=== PATIENT | female | born 1940 | race Caucasian/White ===

== ENCOUNTER 2021-08-10 10:17 | Day surgery (SDC) | payer MEDICARE, SELFPAY ==
[2021-08-10] VITALS (22 sets, daily range): BP systolic 93–157; BP diastolic 50–87; PULSE 60–103; RESP 16–20; TEMP 36.2–36.7; O2SAT 92–99; BMI 23.8
--- NOTE | 2021-08-10 10:27 | HMH.EDGENADL ---
ED Disposition Clinical Impression: Esophageal stricture, Hiatal hernia Dysphagia Qualifiers: Dysphagia type: esophageal phase Qualified Code(s): R13.19 - Other dysphagia Disposition: Still a Patient Condition on Discharge: Fair Referrals: Diego Gonzalez [Primary Care Provider] - - Critical Care Critical Care Time: No Attestation: On , the high probability of a clinically significant, sudden or life threatening deterioration of the following system(s) required my full and direct attention, intervention and personal management. The time I documented below is in addition to time spent performing reported procedures but includes the following listed in this critical care notation. Medical Decision Making - [place] Inquiry Pt receiving controlled substance: No Vital Signs: 08/10/21 10:17 08/10/21 10:18 08/10/21 10:30 Temperature 98.1 F Temperature Source Oral Pulse Rate 64 99 H Pulse Rate [Right Radial] 103 H Respiratory Rate 18 Blood Pressure 146/73 H 156/87 H Blood Pressure [Right Arm] 146/73 H Blood Pressure Mean Blood Pressure Mean [Right Arm] 97 Blood Pressure Source Automatic Cuff Blood Pressure Source [Right Arm] Automatic Cuff Blood Pressure Position Sitting Sitting Blood Pressure Position [Right Arm] Sitting 02 Sat by Pulse Oximetry 96 94 L 99 Oxygen Delivery Method Room Air Room Air Room Air 08/10/21 11:00 08/10/21 11:30 08/10/21 12:00 Temperature Temperature Source Pulse Rate 102 H 88 76 Pulse Rate [Right Radial] Respiratory Rate 18 Blood Pressure 138/81 152/73 H 150/70 H Blood Pressure [Right Arm] Blood Pressure Mean 98 Blood Pressure Mean [Right Arm] Blood Pressure Source Automatic Cuff Blood Pressure Source [Right Arm] Blood Pressure Position Sitting Sitting Blood Pressure Position [Right Arm] 02 Sat by Pulse Oximetry 98 96 97 Oxygen Delivery Method Room Air Room Air - Lab Data Lab Results 08/10/21 10:40: WBC 7.5, RBC 5.05, Hgb 16.7 H, Hct 49.3 H, MCV 97.6, MCH 33.0 H, MCHC 33.8, RDW 13.5, Plt Count 134 L, MPV 9.7, Neut % (Auto) 82.4 H, Lymph % (Auto) 11.5, [place] % (Auto) 4.8, Eos % (Auto) 0.8, Baso % (Auto) 0.5, Neut # (Auto) 6.2, Lymph # (Auto) 0.9, [place] # (Auto) 0.4, Eos # (Auto) 0.1, Baso # (Auto) 0.0 08/10/21 10:40: Sodium 144, Potassium 4.3, Chloride 101, Carbon Dioxide 25, Anion Gap 22.3 H, BUN 26 H, Creatinine 1.30 H, Estimated Creat Clear 32, Estimated GFR 39 L, Est GFR ( Amer) 48 L, Glucose 88, Calcium 10.7 H, Total Bilirubin 2.0 H, AST 64 H, ALT 24, Alkaline Phosphatase 84, Total Protein 8.2, Albumin 5.0, Globulin 3.2, Albumin/Globulin Ratio 1.6 08/10/21 10:40: Lipase 103 08/10/21 10:40: Troponin I 0.03 08/10/21 11:30: SARS-CoV-2 (PCR) Not detected, Influenza A Untype (PCR) Not detected, Influenza Type B (PCR) Not detected Result diagrams: 08/10/21 10:40 08/10/21 10:40 Orders (Tests/Meds): ED MEDICATIONS Discontinued Medications Generic Name Dose Route Start Last Admin Trade Name Freq PRN Reason Stop Dose Admin Barium Sulfate 355 ml 08/10/21 14:27 08/10/21 14:28 Barium Sulfate(Liquid E-Z-Paque);355ml Bottle PO 08/10/21 14:28 355 ml ONCE ONE Administration Sodium Chloride 1,000 ml 08/10/21 11:10 08/10/21 11:17 Sodium Chloride 0.9% 1000ml Bag IV 08/10/21 11:11 1,000 ml BOLUS ONE Administration - Radiology Data #1 Image(s): Chest, Other (Barium swallow) Image Reviewed: Yes I reviewed the patient's radiology image, Yes I have reviewed radiologist's interpretation Preliminary Findings: Abnormal (Large hiatal hernia) PROCEDURE: XR CHEST PORTABLE CLINICAL HISTORY: vomiting COMPARISON: No exams were available for comparison FINDINGS: There has been a prior median sternotomy. Bipolar pacemaker is present from left subclavian approach. There is [id number] cardiomegaly. A prominent rounded area of increased density is present in the retrocardiac agueda
[2021-08-10 10:52] LABS: Basophils % 0.5 % (0.1-2.0); Eosinophils # 0.1 K/mm3 (0.0-0.4); Eosinophils % 0.8 % (0.1-12.0); Hematocrit 49.3 % (37.0-47.0); Hemoglobin 16.7 g/dL (12.2-16.2); Lymphocytes # 0.9 K/mm3 (0.7-4.5); Lymphocytes % 11.5 % (10-50); Mean Corpuscular HGB Conc 33.8 g/dL (31.8-35.4); Mean Corpuscular Volume 97.6 fl (81-99); Mean Platelet Volume 9.7 fl (7.4-10.4); Monocytes # 0.4 K/mm3 (0.1-1.0); Monocytes % 4.8 % (1.7-9.3); Neutrophils # 6.2 K/mm3 (1.8-7.8); Neutrophils % 82.4 % (37.0-80.0); Platelet Count 134 K/mm3 (142-424); Red Blood Count 5.05 M/mm3 (4.20-5.40); Red Cell Distribution Width 13.5 % (11.5-17.5); White Blood Count 7.5 K/mm3 (4.8-10.8)
[2021-08-10 11:00] LABS: Chloride 101 mmol/L (98-107); Potassium 4.3 mmoL/L (3.5-5.1); Sodium 144 mmol/L (136-145)
--- NOTE | 2021-08-10 11:00 | XR_ITS ---
PROCEDURE: XR CHEST PORTABLE CLINICAL HISTORY: vomiting COMPARISON: No exams were available for comparison FINDINGS: There has been a prior median sternotomy. Bipolar pacemaker is present from left subclavian approach. There is [id number] cardiomegaly. A prominent rounded area of increased density is present in the retrocardiac region measuring 13 by 12 cm. This may represent a large hiatal hernia. Differential diagnosis includes aortic aneurysm or mediastinal mass. Suspect elevated left hemidiaphragm.. Chest CT may provide further evaluation. Degenerative changes of the shoulders. IMPRESSION: Cardiomegaly with large retrocardiac density which may be due to hiatal hernia. Differential diagnosis includes mediastinal mass or aortic aneurysm. CT may provide more specificity. Elevated left hemidiaphragm Dictated by: Vasquez Flower MD 08/10/2021 13:00 Vasquez Flower MD in [facility] 08/10/2021 13:00
[2021-08-10 11:02] LABS: Alanine Aminotransferase 24 U/L (12-78); Blood Urea Nitrogen 26 mg/dl (7-17); Creatinine Clearance Estimated 32 mL/min (50-200); Estimated Glomerular Filt Rate 39 ml/min (>60); GFR (African American) 48 ML/MIN (>60)
[2021-08-10 11:03] LABS: Albumin/Globulin Ratio 1.6 (1.1-1.8); Alkaline Phosphatase 84 U/L (38-126); Anion Gap 22.3 mEq/L (5-15); Aspartate Amino Transferase 64 U/L (14-36); Calcium 10.7 mg/dl (8.4-10.2); Carbon Dioxide 25 mmol/L (22.0-30.0); Globulin 3.2 g/dL (1.3-3.2); Glucose 88 mg/dl (74-100); Total Protein,Serum 8.2 g/dl (6.3-8.2)
--- NOTE | 2021-08-10 11:03 | PC.NURSE ---
surgery extermination supervisor paged. Dr Dominguez to return call.
--- NOTE | 2021-08-10 11:06 | PC.NURSE ---
rad at bedside
--- NOTE | 2021-08-10 11:19 | PC.NURSE ---
PEARL MCCAIN speaking with Dr. Dominguez
[2021-08-10 11:21] LABS: Lipase 103 U/L (23-300)
--- NOTE | 2021-08-10 11:22 | FL_ITS ---
PROCEDURE: FL BARIUM SWALLOW CLINICAL INDICATION: Nausea/Vomiting/Diarrhea COMPARISON: No exams were available for comparison FINDINGS: Cable Splicer Assistant exam demonstrates moderate lumbar scoliosis convex right. There is severe narrowing of the distal esophagus at the GE junction with spasm of the distal esophagus. This may represent a stricture. No obvious apple-core lesion. Rounded lucent filling defects are noted in the esophagus butter not persistent and felt to be due to air bubbles. Only a small amount of contrast entered the stomach. There is a large hiatal hernia. There has been a prior median sternotomy. IMPRESSION: Severe stenosis of the distal esophagus which may be related to stricture. Cannot determine malignant or benign etiology based on this exam. There is also spasm of the distal esophagus. Only small amount contrast entered the stomach. There is a large hiatal hernia. Upper endoscopy may provide further evaluation. Dictated by: Vasquez Flower MD 08/10/2021 14:30 Vasquez Flower MD in [facility] 08/10/2021 14:30
[2021-08-10 11:35] LABS: Coronavirus 19, PCR Not Detected (NotDetected); Influenza A, PCR Not Detected (NotDetected); Influenza B, PCR Not Detected (NotDetected)
--- NOTE | 2021-08-10 11:41 | ECG_ITS ---
APPROVED REPORT Exam: Resting ECG HR:86 bpm ECG Measurements Heart Rate 86 AXES QRSd 84 QRS 75 QT 380 T -66 QTc 454 Conclusion Atrial fibrillation RSR' or QR pattern in V1 suggests right ventricular conduction delay Marked ST abnormality, possible inferior subendocardial injury Abnormal ECG Electronically signed by : Narayan Major MD 08/10/2021 20:59:42
[2021-08-10 12:25] LABS: Troponin I 0.03 ng/ml (0.00-0.034)
--- NOTE | 2021-08-10 12:44 | PC.NURSE ---
called rad for an update on pt having her barium swallow, states it should take place soon, staff is working on getting set up for it.
--- NOTE | 2021-08-10 12:46 | PC.NURSE ---
pt sleeping, will continue to monitor
--- NOTE | 2021-08-10 13:08 | CT_ITS ---
PROCEDURE: CT CHEST WO CON The the CLINICAL INDICATION: hiat hernia vs mass COMPARISON: No exams were available for comparison TECHNIQUE: Axial images obtained with sagittal and coronal reformats. All CT scans at the facility use one or more dose reduction, viz: automated exposure control, ma/kV adjustment per patient size (including targeted exams where dose is matched to indication, i.e. head), or iterative reconstruction technique. FINDINGS: HEART AND MEDIASTINAL STRUCTURES: There is a large hiatal hernia which contains nearly the entire stomach.. There is mild thickening of the distal esophagus. There is a focal area of hyperdensity which appears to be in the esophageal lumen in the midthoracic spine area. This could represent a foreign body or an area of calcification. Measures approximately 5 mm. There is cardiomegaly with prominence of the main pulmonary arteries and right and left pulmonary artery with a pulmonary artery/aortic ratio greater than 1. Bipolar pacemaker is present. Coronary artery calcifications noted. LUNGS AND PLEURAL SPACES: There are atelectatic changes adjacent to the large hiatal hernia. No infiltrates or effusions. BONY STRUCTURES: Mild thoracic kyphosis with minimal wedge deformity of T8 and T9 which may be chronic. UPPER ABDOMEN: Unremarkable. ADDITIONAL FINDINGS: No other significant abnormalities. IMPRESSION: 1. Large hiatal hernia containing nearly the entire stomach. Mild thickening of the distal esophagus with small hyperdensity in the mid esophageal region which could be related to of foreign body versus calcification. 2. Other nonacute findings as described above. Dictated by: Vasquez Flower MD 08/10/2021 13:33 Vasquez Flower MD in [facility] 08/10/2021 13:33
--- NOTE | 2021-08-10 13:15 | PC.NURSE ---
pt to radiology for ct and fluoro
--- NOTE | 2021-08-10 13:15 | PC.NURSE ---
PT GOING FOR CT AND BARIUM SWALLOW
--- NOTE | 2021-08-10 14:52 | PC.NURSE ---
MESSAGE LEFT FOR DR KIRKPATRICK
--- NOTE | 2021-08-10 15:02 | PC.NURSE ---
Addendum entered by Magdalene Lo RN 08/10/21 15:05: Dr. Álvarez states he will be coming down to see pt Original Note: PEARL MCCAIN speaking with Dr. Dominguez
--- NOTE | 2021-08-10 15:10 | PC.NURSE ---
dr henriquez at bedside
--- NOTE | 2021-08-10 15:22 | HMH.GSHP ---
HPI HPI: Patient is an 80-year-old female who lives in [facility]. Primary care provider is Diego Gonzalez MD. She has a history of reflux. She has had a relatively longstanding history of dysphagia however over the past 2 or 3 days she has been unable to keep anything down including saliva. She presented to the emergency department at [facility] via EMS. There was concern for possible esophageal foreign body/food impaction. She underwent plain chest x-ray which revealed findings of cardiomegaly with a large retrocardiac density which was felt to be possibly hiatal hernia. She underwent CT scan which revealed findings of large hiatal hernia containing nearly her entire stomach. There is some mild thickening of the distal esophagus with small hyperdensity in the mid esophageal region. Surgery was contacted. Given the unusual presentation with uncertain etiology of her symptoms she underwent barium swallow. This revealed severe stenosis of the distal esophagus which may be related to stricture. Malignancy versus benign etiology could not be discerned. She also had spasm of the distal esophagus with only a tiny amount of contrast entering the stomach. A large hiatal hernia was present. [facility] History I have reviewed the patient's past medical history: Yes Medical History: Reports:: Atrial Fibrillation, Gastroesophageal Reflux Disease(GERD), Hiatal Hernia *Have you ever received a pneumonia vaccine?: No *Have you received a flu vaccine this season?: Yes Other Surgeries: Yes: Appendectomy, Cholecystectomy, Hysterectomy-Total - *Social History Smoking Status: Never smoker Alcohol Intake: never *Occupational Status:: other *Travel in the last 8 weeks: None Family Hx:: Non-contributory Meds Home Medications Medication Instructions Recorded Confirmed Type Famotidine 10 mg PO DAILY 08/10/21 08/10/21 History Furosemide [Furosemide 20mg Tab*] 20 mg PO DAILY 08/10/21 08/10/21 History Lovastatin [Altoprev] 40 mg PO DAILY 08/10/21 08/10/21 History Magnesium Oxide [Mag-Ox 400mg Tab] 400 mg PO BID 08/10/21 08/10/21 History Metoprolol Tartrate [Lopressor 50 mg PO BID 08/10/21 08/10/21 History 50mg tablet] Potassium Chloride 10 meq PO TID 08/10/21 08/10/21 History Rivaroxaban [Xarelto 20mg Tablet*] 20 mg PO DAILY 08/10/21 08/10/21 History Tramadol HCl [Tramadol 50mg 50 mg PO TID PRN 08/10/21 08/10/21 History Tab] clonazePAM [Clonazepam] 0.25 mg PO HS 08/10/21 08/10/21 History lisinopriL [Lisinopril] 5 mg PO DAILY 08/10/21 08/10/21 History Allergies Allergy/AdvReac Type Severity Reaction Status Date / Time No Known Allergies Allergy Verified 08/10/21 10:36 Exam Vital signs and Labs for Last 24 Hours: Temp Pulse Resp BP Pulse Ox 98.1 F 76 18 150/70 H 97 08/10/21 10:18 08/10/21 12:00 08/10/21 12:00 08/10/21 12:00 08/10/21 12:00 Laboratory Results - last 24 hr 08/10/21 10:40: WBC 7.5, RBC 5.05, Hgb 16.7 H, Hct 49.3 H, MCV 97.6, MCH 33.0 H, MCHC 33.8, RDW 13.5, Plt Count 134 L, MPV 9.7, Neut % (Auto) 82.4 H, Lymph % (Auto) 11.5, [place] % (Auto) 4.8, Eos % (Auto) 0.8, Baso % (Auto) 0.5, Neut # (Auto) 6.2, Lymph # (Auto) 0.9, [place] # (Auto) 0.4, Eos # (Auto) 0.1, Baso # (Auto) 0.0 08/10/21 10:40: Sodium 144, Potassium 4.3, Chloride 101, Carbon Dioxide 25, Anion Gap 22.3 H, BUN 26 H, Creatinine 1.30 H, Estimated Creat Clear 32, Estimated GFR 39 L, Est GFR ( Amer) 48 L, Glucose 88, Calcium 10.7 H, Total Bilirubin 2.0 H, AST 64 H, ALT 24, Alkaline Phosphatase 84, Total Protein 8.2, Albumin 5.0, Globulin 3.2, Albumin/Globulin Ratio 1.6 08/10/21 10:40: Lipase 103 08/10/21 10:40: Troponin I 0.03 08/10/21 11:30: SARS-CoV-2 (PCR) Not detected, Influenza A Untype (PCR) Not detected, Influenza Type B (PCR) Not detected I & O for Last 24 hours: Intake & Output 08/08/21 08/09/21 08/10/21 08/11/21 11:59 11:59 11:59 11:59 Weight 130 lb - Constitutional no acute distress, thin - *Ro
--- NOTE | 2021-08-10 15:40 | PC.NURSE ---
surgery staff at to get pt for EGD, states Dr. Dominguez notified them of wanting to do and EGD on pt.
--- NOTE | 2021-08-10 16:24 | CT_ITS ---
PROCEDURE INFORMATION: Exam: CT Chest Without Contrast; Diagnostic Exam date and time: 08/10/2021 4:24 PM Age: 80 years old Clinical indication: Other: Vomiting; Prior surgery; Surgery date: Post-operative (0-2 days); Surgery type: Post egd TECHNIQUE: Imaging protocol: Diagnostic computed tomography of the chest without contrast. Radiation optimization: All CT scans at this facility use at least one of these dose optimization techniques: automated exposure control; mA and/or kV adjustment per patient size (includes targeted exams where dose is matched to clinical indication); or iterative reconstruction. COMPARISON: CT CHEST WO CON 08/10/2021 1:16 PM FINDINGS: Thyroid: Heterogeneous thyroid, likely tiny hypoattenuating nodules of 3-4 mm, no significantly enlarged nodule requiring follow-up per ACR guidelines. Lungs: Mild pulmonary atelectasis or scarring greatest in the lower lungs abutting the large hernia. No acute findings. No consolidation. No pulmonary nodules. Pleural spaces: Unremarkable. No significant pleural effusion. No pneumothorax. Heart: Cardiomegaly. A dual lead left subclavian cardiac pacemaker. No significant pericardial effusion. Coronary artery calcifications. Mediastinal space: A nonspecific thickened appearance of the distal esophagus up to 9 mm wall thickness with narrowing at the GE junction as noted on today's earlier CT and barium swallow reports, correlate with EGD findings for esophagitis, Saba's esophagus or esophageal neoplasm. Proximal to this, there is mild gaseous distention of the esophagus, and some retained bubbly material in the esophagus, see sagittal series 602, image 43, but contrast material from the earlier barium swallow exam has emptied from the esophagus into the stomach, and there is no retained contrast material within the esophagus. There is no extravasated contrast material within the mediastinum, and no pneumomediastinum, to suggest an esophageal or gastric perforation post EGD. Large hiatal hernia again noted, with majority of the stomach in the chest. The stomach is mostly empty and contracted, suboptimally evaluated. There is no evidence of a high-grade volvulus or gastric outlet obstruction, contrast passes into the duodenum. Pulmonary arteries: Dilated pulmonary trunk to approximately 4 cm and dilated right pulmonary artery 3.8 cm. Correlate for history of pulmonary hypertension, or valvular heart disease. Aorta: Calcified atherosclerotic plaques. No aortic aneurysm. Tortuous aorta. Lymph nodes: No significantly enlarged lymph nodes by short axis criteria. Kidneys and ureters: Multiple right renal cortical cystic lesions, some are hyperdense suggesting hemorrhagic cysts, these are incompletely imaged and incompletely characterized on this nonenhanced study. The largest cystic appearing lesion of approximately 1.6 cm in the superomedial right kidney has HU density approximately 12, suggesting likely benign cyst. Bones/joints: Sternotomy wires . Thoracic kyphosis, multiple mild chronic appearing anterior wedge deformities of thoracic vertebral bodies.There are spinal degenerative changes, with multilevel disc disease and spondylosis. Mild anterior subluxation T1-T2 and T2-T3, likely chronic and degenerative. Prominent bilateral shoulder arthritis. Motion artifacts. Soft tissues: There are no soft tissue masses or fluid collections. IMPRESSION: 1. Abnormal thickened distal esophagus, and narrowed gastroesophageal junction, correlate with EGD findings for esophagitis, Saba's esophagus, or esophageal neoplasm. 2. Mild gaseous distention of the esophagus with some bubbly mate
--- NOTE | 2021-08-10 16:24 | HMH.SCOPE ---
- Procedure: Date: 08/10/21 Patient Date of :: 1940 Procedure Performed:: Esophagogastroduodenoscopy with biopsy and dilatation distal esophageal stricture Indications:: Patient is an 80-year-old female who lives in [facility]. Primary care provider is Diego Gonzalez MD. She has a history of reflux. She has had a relatively longstanding history of dysphagia however over the past 2 or 3 days she has been unable to keep anything down including saliva. She presented to the emergency department at [facility] via EMS. There was concern for possible esophageal foreign body/food impaction. She underwent plain chest x-ray which revealed findings of cardiomegaly with a large retrocardiac density which was felt to be possibly hiatal hernia. She underwent CT scan which revealed findings of large hiatal hernia containing nearly her entire stomach. There is some mild thickening of the distal esophagus with small hyperdensity in the mid esophageal region. Surgery was contacted. Given the unusual presentation with uncertain etiology of her symptoms she underwent barium swallow. This revealed severe stenosis of the distal esophagus which may be related to stricture. Malignancy versus benign etiology could not be discerned. She also had spasm of the distal esophagus with only a tiny amount of contrast entering the stomach. A large hiatal hernia was present. Given the fact that she had essentially high-grade distal esophageal obstruction plan was made for EGD with possible dilatation. Performing Provider:: Benny Dominguez MD Referring Provider:: Diego Gonzalez MD Sedation:: MAC sedation Procedure:: Consent was obtained patient was taken to endoscopy procedure room. She was positioned in lateral decubitus position. Adequate intravenous sedation was achieved with anesthesia titration of propofol. Olympus endoscope was inserted via the oropharynx. Esophagus was cannulated. She had tortuosity and findings of esophageal spasm. However, the stomach was able to be entered and cannulated. She had diffuse moderately severe nonerosive gastritis. Overall anatomic orientation of the stomach was altered due to the fact that her stomach was actually in her chest due to large hiatal hernia. However, the endoscope was able to be advanced beyond the pylorus and into the duodenum which appeared grossly normal. Endoscope was withdrawn into the gastric lumen. Gastric mucosal biopsy was obtained for histopathologic analysis. Endoscope was withdrawn into the distal esophagus. Gastroesophageal junction was at approximately 37 to 38 cm from the incisors. There was some focal luminal narrowing at the gastroesophageal junction. The lumen appeared to be larger than on barium swallow. The distal esophageal stricture was sequentially dilated using the elation balloon pneumatic dilator initially to 10 mm at 4.5 hadley then slowly to 11 mm at 6.5 hadley and 12 mm at 8 hadley. Dilator was then replaced with a 12 to 15 mm dilator and dilated to 12 mm at 4 hadley pressure. It was slowly brought up to approximately 6 [place]ley which was slightly under 13 mm luminal diameter. After this was held for approximately 1 minute the balloon was deflated. Endoscope was able to be advanced into the gastric lumen which was desufflated. Endoscope was withdrawn. Findings:: Esophageal spasm Gastroesophageal junction at approximately 38 cm from the incisors Distal esophageal stricture dilated to between 12 to 13 mm Diffuse moderate to moderately severe nonerosive gastritis Recommendations:: I will obtain a CT scan of the chest post procedure. Recommend clear liquid diet for 24 hours and full liquid diet for approximately 48 hours following that then soft pur?ed diet. May require follow-up endoscopy for additional dilatation and biopsies. Complications:: None immediately apparent Estimated blood obtained (mL): 1
--- NOTE | 2021-08-10 16:34 | HMH.ANESCL ---
[facility] Anesthesia Checklist - Patient Identification Patient Identification: Arm Band - Structural Data Admitted From: Emergency Dept Planned Operative Procedure/s: EGD Consent for Planned Operative Procedure(s) Verified: Yes Verified Documents: Surgical Consent, History and Physical - NPO Status Verified Time NPO: 00:00 - Additional verifications Anesthesia Reactions: No - Airway Assessment C-Spine Mobility Assessed: Yes (mp2) TMJ Mobility Assessed: Yes - Neurological Assessment Level of Consciousness: Awake, Alert - Anesthesia Plan Anesthesia Risk discussed: Yes Anesthesia Plan: Verified ASA Class: III (E) Anesthesia Type: MAC [facility] History I have reviewed the patient's past medical history: Yes Medical History: Reports:: Atrial Fibrillation, Gastroesophageal Reflux Disease(GERD), Hiatal Hernia *Have you ever received a pneumonia vaccine?: No *Have you received a flu vaccine this season?: Yes Anesthesia experience/problems:: NAC Other Surgeries: Yes: Appendectomy, Cholecystectomy, Hysterectomy-Total - *Social History Smoking Status: Never smoker Alcohol Intake: never Substance Use Type: denies use *Occupational Status:: other *Travel in the last 8 weeks: None Family Hx:: Non-contributory
--- NOTE | 2021-08-10 17:09 | SUR.PHASEII ---
1631-pt transported to CT via stretcher per Jennifer,radiology and Yogi,RN, YogiRn remains at bedside with pt for continual monitoring of vital signs, vss at this time
--- NOTE | 2021-08-10 17:10 | SUR.PHASEII ---
1649-pt returned to post op via stretcher per Jennifer,radiology and Yogi,RN, continual monitoring of pt at this time, vss
--- NOTE | 2021-08-10 17:38 | SUR.PHASEII ---
1700-notified DR. Dominguez that pt is swallowing well at this time but vomiting thick, clear phlegm after drinking, no further orders at this time, will continue to monitor 1720-notified Dr. Dominguez that pt vomitted small amount of thick, mucus/phlegm like secretions after drinking water again, no further orders at this time-MD notified to give additional aspiration precautions to pt prior to discharge, vss, will continue to monitor 1732-pt's son at bedside, aspiration precautions education and discharge instructions given to pt's son and pt at this time, awaiting CT results at this time, vss, will continue to monitor
== END 2021-08-10 15:29 ==
LOC: ER 15:33 → SDC 08-16 14:45
PROVIDERS: Emergency Provider Emergency Medicine; PCP Family Medicine; Visit Provider Surgery
PROC: 0DJ08ZZ Inspection of Upper Intestinal Tract, Via Natural or Artificial Opening Endoscopic (ICD-10-PCS; CPT 43235; principal; 2021-08-10 15:45)
DX: K22.4 Dyskinesia of esophagus (principal); K22.2 Esophageal obstruction; K29.60 Other gastritis without bleeding; I48.91 Unspecified atrial fibrillation; Z79.899 Other long term (current) drug therapy; Z90.49 Acquired absence of other specified parts of digestive tract; Z90.710 Acquired absence of both cervix and uterus
CPT/HCPCS: 43239; 43249; 71045; 71250; 74220; 80053; 83690; 84484; 85025; 88305; 93005; 96365; 99284; C1726; C9803; U0003; U0005

== ENCOUNTER 2021-08-28 12:14 | Observation (INO) | payer MEDICARE, SELFPAY ==
[2021-08-28] VITALS (15 sets, daily range): BP systolic 128–160; BP diastolic 62–115; PULSE 67–86; RESP 18–20; TEMP 36.7–37.3; O2SAT 95–100; BMI 23.8; BMI 22.6
--- NOTE | 2021-08-28 12:18 | XR_ITS ---
PROCEDURE INFORMATION: Exam: XR Chest Exam date and time: 08/28/2021 12:18 PM Age: 80 years old Clinical indication: Other: Vomitting; Additional info: Vomiting TECHNIQUE: Imaging protocol: XR of the chest. Views: 1 view. COMPARISON: CT CHEST WO CON 08/10/2021 4:39 PM FINDINGS: Tubes, catheters and devices: Left subclavian transvenous pacemaker in place. Lungs: Lungs are hyperexpanded, compatible chronic obstructive pulmonary physiologic changes. Pleural spaces: Unremarkable. No pleural effusion. No pneumothorax. Heart/Mediastinum: Cardiomegaly. Bones/joints: Changes of prior sternotomy. Multilevel thoracic spine degenerative disc space narrowing and osteophyte formation. Right humeral head is high riding in relation to the glenoid, compatible with chronic right rotator cuff arthropathy. IMPRESSION: No acute cardiopulmonary abnormality.
--- NOTE | 2021-08-28 12:18 | CT_ITS ---
PROCEDURE INFORMATION: Exam: CT Abdomen And Pelvis With Contrast Exam date and time: 08/28/2021 12:18 PM Age: 80 years old Clinical indication: Vomiting; Additional info: Abdominal pain, vomiting TECHNIQUE: Imaging protocol: Computed tomography of the abdomen and pelvis with contrast. Radiation optimization: All CT scans at this facility use at least one of these dose optimization techniques: automated exposure control; mA and/or kV adjustment per patient size (includes targeted exams where dose is matched to clinical indication); or iterative reconstruction. Contrast material: ISOVUE; Contrast volume: 75 ml; Contrast route: IV; COMPARISON: CT CHEST WO CON 08/10/2021 4:39 PM FINDINGS: Lungs: Compressive atelectasis in the lower lungs due to the large hiatal hernia. No focal consolidation, as visualized. Heart: Cardiomegaly. Cardiac pacer wires. Dilated left atrium. Liver: The liver is normal. Gallbladder and bile ducts: Cholecystectomy clips. Biliary tree is within normal limits post cholecystectomy. No calcified stones. Pancreas: Mild fatty infiltrative changes of the pancreas. No ductal dilatation or mass. Spleen: No splenomegaly. Calcified granuloma. Small accessory splenule series 3, image 32. Adrenal glands: Nodular thickening of the left adrenal compared with right, series 3 images 27-28 possible underlying 9 mm nodule, too small to accurately characterize. Kidneys and ureters: Multiple bilateral renal cortical cystic lesions ranging from a few mm up to 2.7 cm diameter. Most of these lesions have a simple benign appearance. Subcentimeter lesions are too small to accurately characterize. There are a few lesions with indeterminate density measurements, lesion of 1.7 cm in the posterolateral left kidney series 3, image 38-39 which has HU density measurement of 73, and 1 cm lesion with HU density of approximately 90 at the lateral right upper pole series 3, image 24, another indeterminate density ovoid 1 cm right posterolateral lesion with HU density 83 series 3, image 29; and other small indeterminate density lesions in the kidneys. There is no hydronephrosis, hydroureter, or definite obstructing ureteral stones. Tiny calcifications abutting the ureters appear more likely adjacent phleboliths, as the ureters are not dilated. 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 Part of the stomach is clipped off the field of view. Mild amount of fluid in the distal stomach, no significant dilatation compared with the prior exam. There is diverticulosis coli, without evidence of acute diverticulitis. Cecal surgical sutures. Scattered small intestinal air-fluid levels, no dilated loops or mucosal thickening. Appendix: No findings of appendicitis. Correlate for appendectomy, surgical sutures at the tip of cecum. Intraperitoneal space: There is no significant free intraperitoneal fluid. There is no free intraperitoneal air. Vasculature: There is no aortic aneurysm. The vasculature demonstrates diffuse moderate atherosclerotic calcification. No portal venous gas. Lymph nodes: No significantly enlarged lymph nodes by short axis criteria. Urinary bladder: The bladder is normal. Reproductive: Post hysterectomy. Multiple tiny left ovarian calcifications, no enlarged cyst or mass as visualized. Bones/joints: Sternotomy wires. Prominent lumbar dextroscoliosis.There are spinal degenerative changes, with multilevel disc narrrowing and spondylosis. Degenerative grade
--- NOTE | 2021-08-28 12:33 | HMH.EDGENADL ---
ED Disposition Clinical Impression: Adrenal nodule, Hiatal hernia Nausea and vomiting Qualifiers: Vomiting type: unspecified Qualified Code(s): R11.2 - Nausea with vomiting, unspecified Disposition: Admitted As Inpatient Condition on Discharge: Fair Time of Disposition: 17:56 - Critical Care Critical Care Time: No Attestation: On , the high probability of a clinically significant, sudden or life threatening deterioration of the following system(s) required my full and direct attention, intervention and personal management. The time I documented below is in addition to time spent performing reported procedures but includes the following listed in this critical care notation. Medical Decision Making - Medical Records Medical records reviewed: Yes: I reviewed the patient's medical records. - [place] Inquiry Pt receiving controlled substance: No Vital Signs: 08/28/21 12:14 08/28/21 13:00 08/28/21 14:00 Temperature 99.1 F Temperature Source Oral Pulse Rate 78 81 Pulse Rate [Left Radial] 67 Respiratory Rate 18 18 18 Blood Pressure 130/75 128/62 Blood Pressure [Right Arm] 137/84 Blood Pressure Mean Blood Pressure Mean [Right Arm] 101 Blood Pressure Source [Right Arm] Automatic Cuff Blood Pressure Position [Right Arm] Sitting 02 Sat by Pulse Oximetry 95 100 Oxygen Delivery Method Room Air 08/28/21 14:05 08/28/21 14:30 08/28/21 15:20 Temperature Temperature Source Pulse Rate 86 78 82 Pulse Rate [Left Radial] Respiratory Rate 18 18 18 Blood Pressure 128/62 131/73 144/69 H Blood Pressure [Right Arm] Blood Pressure Mean 94 86 76 Blood Pressure Mean [Right Arm] Blood Pressure Source [Right Arm] Blood Pressure Position [Right Arm] 02 Sat by Pulse Oximetry 100 98 100 Oxygen Delivery Method 08/28/21 15:30 08/28/21 16:00 08/28/21 16:30 Temperature Temperature Source Pulse Rate 84 84 86 Pulse Rate [Left Radial] Respiratory Rate 18 18 18 Blood Pressure 138/68 140/67 128/78 Blood Pressure [Right Arm] Blood Pressure Mean 91 91 94 Blood Pressure Mean [Right Arm] Blood Pressure Source [Right Arm] Blood Pressure Position [Right Arm] 02 Sat by Pulse Oximetry 98 96 98 Oxygen Delivery Method 08/28/21 17:00 08/28/21 17:31 08/28/21 18:01 Temperature Temperature Source Pulse Rate 86 86 86 Pulse Rate [Left Radial] Respiratory Rate 18 18 18 Blood Pressure 143/67 H 153/115 H 137/71 Blood Pressure [Right Arm] Blood Pressure Mean 92 125 96 Blood Pressure Mean [Right Arm] Blood Pressure Source [Right Arm] Blood Pressure Position [Right Arm] 02 Sat by Pulse Oximetry 98 98 98 Oxygen Delivery Method 08/28/21 18:31 Temperature Temperature Source Pulse Rate 86 Pulse Rate [Left Radial] Respiratory Rate 18 Blood Pressure 133/83 Blood Pressure [Right Arm] Blood Pressure Mean 101 Blood Pressure Mean [Right Arm] Blood Pressure Source [Right Arm] Blood Pressure Position [Right Arm] 02 Sat by Pulse Oximetry 98 Oxygen Delivery Method - Lab Data Lab Results 08/28/21 13:10: SARS-CoV-2 (PCR) Not detected, Influenza A Untype (PCR) Not detected, Influenza Type B (PCR) Not detected 08/28/21 14:20: WBC 6.5, RBC 4.05 L, Hgb 13.3, Hct 40.7, MCV 100.5 H, MCH 32.8 H, MCHC 32.6, RDW 14.3, Plt Count 210, MPV 9.4, Neut % (Auto) 83.7 H, Lymph % (Auto) 11.3, [place] % (Auto) 4.1, Eos % (Auto) 0.4, Baso % (Auto) 0.5, Neut # (Auto) 5.4, Lymph # (Auto) 0.7, [place] # (Auto) 0.3, Eos # (Auto) 0.0, Baso # (Auto) 0.0 08/28/21 14:20: Sodium 140, Potassium 3.6, Chloride 103, Carbon Dioxide 21 L, Anion Gap 19.6 H, BUN 22 H, Creatinine 1.00, Estimated Creat Clear 41, Estimated GFR 53 L, Est GFR ( Amer) 64, Glucose 86, Calcium 9.5, Total Bilirubin 1.2, AST 26, ALT 16, Alkaline Phosphatase 70, Total Protein 6.6, Albumin 3.8, Globulin 2.8, Albumin/Globulin Ratio 1.4, Lipase 110 Result diagrams: 08/28/21 14:20 08/28/21 14:20 Orders
[2021-08-28 13:58] LABS: Coronavirus 19, PCR Not Detected (NotDetected); Influenza A, PCR Not Detected (NotDetected); Influenza B, PCR Not Detected (NotDetected)
[2021-08-28 14:28] LABS: Basophils % 0.5 % (0.1-2.0); Eosinophils % 0.4 % (0.1-12.0); Hematocrit 40.7 % (37.0-47.0); Hemoglobin 13.3 g/dL (12.2-16.2); Lymphocytes # 0.7 K/mm3 (0.7-4.5); Lymphocytes % 11.3 % (10-50); Mean Corpuscular HGB Conc 32.6 g/dL (31.8-35.4); Mean Corpuscular Hemoglobin 32.8 pg (27.0-31.2); Mean Corpuscular Volume 100.5 fl (81-99); Mean Platelet Volume 9.4 fl (7.4-10.4); Monocytes # 0.3 K/mm3 (0.1-1.0); Monocytes % 4.1 % (1.7-9.3); Neutrophils # 5.4 K/mm3 (1.8-7.8); Neutrophils % 83.7 % (37.0-80.0); Platelet Count 210 K/mm3 (142-424); Red Blood Count 4.05 M/mm3 (4.20-5.40); Red Cell Distribution Width 14.3 % (11.5-17.5); White Blood Count 6.5 K/mm3 (4.8-10.8)
[2021-08-28 14:34] LABS: Chloride 103 mmol/L (98-107); Sodium 140 mmol/L (136-145)
[2021-08-28 14:35] LABS: Potassium 3.6 mmoL/L (3.5-5.1)
[2021-08-28 14:37] LABS: Alanine Aminotransferase 16 U/L (12-78); Alkaline Phosphatase 70 U/L (38-126); Anion Gap 19.6 mEq/L (5-15); Aspartate Amino Transferase 26 U/L (14-36); Bilirubin,Total 1.2 mg/dl (0.2-1.3); Blood Urea Nitrogen 22 mg/dl (7-17); Carbon Dioxide 21 mmol/L (22.0-30.0); Creatinine Clearance Estimated 41 mL/min (50-200); Estimated Glomerular Filt Rate 53 ml/min (>60); GFR (African American) 64 ML/MIN (>60); Lipase 110 U/L (23-300)
[2021-08-28 14:38] LABS: Albumin Level 3.8 g/dl (3.5-5.0); Albumin/Globulin Ratio 1.4 (1.1-1.8); Calcium 9.5 mg/dl (8.4-10.2); Globulin 2.8 g/dL (1.3-3.2); Glucose 86 mg/dl (74-100); Total Protein,Serum 6.6 g/dl (6.3-8.2)
--- NOTE | 2021-08-28 19:06 | PC.NURSE ---
attempted to call report, television production clerk states they are unsure who is getting the patient, ask to transfer to charge, no answer at this time.
--- NOTE | 2021-08-28 19:38 | PC.NURSE ---
s/w Son, Jed Marshallw and updated him on pt's condition
--- NOTE | 2021-08-28 19:46 | PC.NURSE ---
Called report to Anel Baird RN
--- NOTE | 2021-08-28 19:54 | PC.NURSE ---
patient up to floor @ this time via stretcher.
--- NOTE | 2021-08-28 21:29 | PC.NURSE ---
pt can't verify when she last took her medications, but states she took all of then on 08/27
[2021-08-29] VITALS: BP 143/73; PULSE 85; RESP 16; TEMP 36.4; O2SAT 95
[2021-08-29 04:00] VITALS: BP 155/62; PULSE 76; RESP 16; TEMP 36.8; O2SAT 97
[2021-08-29 05:11] VITALS: BMI 22.6
--- NOTE | 2021-08-29 06:13 | PC.NURSE ---
pt arrived to floor early in shift, at this time had some nausea that has improved, has rested well, no complaints of SOA or pain, remains on room air with O2 sats 95-98%, did have an episode of dizziness when standing to use BSC, vitals taken at this point, BP 143/73, HR 85, O2 95%, pt quickly recovered from this episode and this has not occurred since
[2021-08-29 08:00] VITALS: BP 117/51; PULSE 64; RESP 18; TEMP 36.8; O2SAT 92
--- NOTE | 2021-08-29 08:55 | PC.NURSE ---
Paged welder production line arc surgeon for this pt at [phone].
--- NOTE | 2021-08-29 09:02 | PC.NURSE ---
Dr Walker returned call at this time.
--- NOTE | 2021-08-29 10:04 | HMH.HP ---
*Admission Date: 08/28/21 *Chief complaint: unable to swallow *History of present illness: this patient was seen in the ed with hx -80-year-old female presenting to the emergency department generalized illness, nausea and vomiting. Symptoms been present for the last 4 to 5 days but getting worse. She is able to drink water and take small bites of food. However, she vomits shortly after. She had her esophagus stretched with Dr. Dominguez 1 week ago. Did well for a couple of days. She denies fevers, chills. Minimal anterior abdominal pain. No dysuria or hematuria. She has not had a bowel movement in a couple of days, but does not feel like she is constipated. Does not have nausea medication at home. No headache, dizziness [facility] History I have reviewed the patient's past medical history: Yes Medical History: Reports:: Atrial Fibrillation, Gastroesophageal Reflux Disease(GERD), Hiatal Hernia *Have you ever received a pneumonia vaccine?: No *Have you received a flu vaccine this season?: No Other Surgeries: Yes: Appendectomy, Cholecystectomy, EGD, Hysterectomy-Total Amputation: No Fractures: No - *Social History Smoking Status: Never smoker Alcohol Intake: never Substance Use Type: denies use *Occupational Status:: retired *Travel in the last 8 weeks: None Family Hx:: No significant family history Review of Systems - Review of Systems Review of systems:: pertinent systems reviewed and negative unless documented below - Constitutional Denies fever(s) - Eyes Denies change in vision - ENT Denies sore throat - *Cardiovascular Denies chest pain at rest - *Respiratory Denies cough - *Gastrointestinal Denies abdominal pain, Denies vomiting - *Genitourinary Denies blood in urine - *Musculoskeletal Denies joint pain - Integumentary/Breasts Denies rash - *Neurologic Denies dizziness, Denies headache(s), Denies numbness, Denies dizziness - Psychiatric Denies anxiety Meds Home Medications Medication Instructions Recorded Confirmed Type Famotidine 10 mg PO DAILY 08/10/21 08/28/21 History Furosemide [Furosemide 20mg Tab*] 40 mg PO DAILY 08/10/21 08/29/21 History Lovastatin [Altoprev] 40 mg PO DAILY 08/10/21 08/28/21 History Magnesium Oxide [Mag-Ox 400mg Tab] 400 mg PO BID 08/10/21 08/28/21 History Metoprolol Tartrate [Lopressor 50 mg PO BID 08/10/21 08/28/21 History 50mg tablet] Potassium Chloride 10 meq PO TID 08/10/21 08/28/21 History Rivaroxaban [Xarelto 20mg Tablet*] 20 mg PO DAILY 08/10/21 08/28/21 History Tramadol HCl [Tramadol 50mg 50 mg PO TIDP PRN 08/10/21 08/29/21 History Tab] lisinopriL [Lisinopril] 5 mg PO DAILY 08/10/21 08/28/21 History Omeprazole Magnesium 20 mg PO DAILY 08/28/21 08/28/21 History clonazePAM [Clonazepam] 0.25 mg PO HS 08/29/21 08/29/21 History Allergies Allergy/AdvReac Type Severity Reaction Status Date / Time No Known Allergies Allergy Verified 08/28/21 21:27 Exam Vital signs and Labs for Last 24 Hours: Temp Pulse Resp BP Pulse Ox 98.3 F 64 18 117/51 L 92 L 08/29/21 08:00 08/29/21 08:00 08/29/21 08:00 08/29/21 08:00 08/29/21 08:00 Laboratory Results - last 24 hr 08/28/21 13:10: SARS-CoV-2 (PCR) Not detected, Influenza A Untype (PCR) Not detected, Influenza Type B (PCR) Not detected 08/28/21 14:20: WBC 6.5, RBC 4.05 L, Hgb 13.3, Hct 40.7, MCV 100.5 H, MCH 32.8 H, MCHC 32.6, RDW 14.3, Plt Count 210, MPV 9.4, Neut % (Auto) 83.7 H, Lymph % (Auto) 11.3, [place] % (Auto) 4.1, Eos % (Auto) 0.4, Baso % (Auto) 0.5, Neut # (Auto) 5.4, Lymph # (Auto) 0.7, [place] # (Auto) 0.3, Eos # (Auto) 0.0, Baso # (Auto) 0.0 08/28/21 14:20: Sodium 140, Potassium 3.6, Chloride 103, Carbon Dioxide 21 L, Anion Gap 19.6 H, BUN 22 H, Creatinine 1.00, Estimated Creat Clear 41, Estimated GFR 53 L, Est GFR ( Amer) 64, Glucose 86, Calcium 9.5, Total Bilirubin 1.2, AST 26, ALT 16, Alkaline Phosphatase 70, Total Protein 6.6, Albumin 3.8, Globulin 2.8, Albumin/Globulin R
--- NOTE | 2021-08-29 11:20 | HMH.PHAINT ---
MEDICATION RECONCILIATION COMPLETE USING EXTERNAL PHARMACY FILL HISTORY AND RECENT MD OFFICE VISIT LIST.
--- NOTE | 2021-08-29 11:21 | HMH.PHAVTE ---
[facility] Pharmacy VTE Monitoring - Patient Demographics Allergies/Adverse Reactions: Patient Allergies No Known Allergies Allergy (Verified 08/28/21 21:27) Height: 1.57 m Weight: 55.7 kg Patient Problems: Current Active Problems Hiatal hernia (Acute) Adrenal nodule (Acute) Nausea and vomiting (Acute) - VTE Risk Labs: VTE Related Lab Results Hgb 13.3 g/dL (12.2-16.2) 08/28/21 14:20 Hct 40.7 % (37.0-47.0) 08/28/21 14:20 Plt Count 210 K/mm3 (142-424) 08/28/21 14:20 BUN 22 mg/dl (7-17) H 08/28/21 14:20 Creatinine 1.00 mg/dl (0.52-1.04) 08/28/21 14:20 Estimated Creat Clear 41 mL/min (50-200) 08/28/21 14:20 Was VTE Risk Assessment Performed: Yes VTE Score: 6 VTE Risk Level: Moderate Risk Clinical Trial Participant: No - Prophylaxis VTE Prophylaxis Ordered?: Yes Types of VTE Prophylaxis: TEDS Knee High Location of Applied Device: Bilateral Lower Extremeties
--- NOTE | 2021-08-29 14:30 | HMH.GSCON ---
*Admission Date: 08/28/21 *Reason for consult:: Dysphagia. *History of present illness: Ms. Delgado is an 80-year-old female with reported history of dysphagia. Difficulty with solids and liquids. Early regurgitation with oral intake. Unable to tolerate oral intake, including liquids. Presented to [facility] ED for evaluation. CT imaging once again obtained demonstrating a large hiatal hernia with the majority of the stomach within the chest. Patient has undergone EGD with esophageal dilation in July 2021 with approximately 2 to 3 days of improvement. Symptoms have now returned and is unable to stay hydrated or nourished. Admitted for difficulty with oral intake. Review of Systems - Review of Systems Review of systems:: pertinent systems reviewed and negative unless documented below - *Neurologic Denies dizziness, Denies headache(s), Denies numbness, Denies dizziness [facility] History Medical History: Reports:: Atrial Fibrillation, Gastroesophageal Reflux Disease(GERD), Hiatal Hernia *Have you ever received a pneumonia vaccine?: No *Have you received a flu vaccine this season?: No Other Surgeries: Yes: Appendectomy, Cholecystectomy, EGD, Hysterectomy-Total Amputation: No Fractures: No - *Social History Smoking Status: Never smoker Alcohol Intake: never Substance Use Type: denies use *Occupational Status:: retired *Travel in the last 8 weeks: None Family Hx:: No significant family history Meds Home Medications Medication Instructions Recorded Confirmed Type Famotidine 10 mg PO DAILY 08/10/21 08/28/21 History Furosemide [Furosemide 20mg Tab*] 40 mg PO DAILY 08/10/21 08/29/21 History Lovastatin [Altoprev] 40 mg PO DAILY 08/10/21 08/28/21 History Magnesium Oxide [Mag-Ox 400mg Tab] 400 mg PO BID 08/10/21 08/28/21 History Metoprolol Tartrate [Lopressor 50 mg PO BID 08/10/21 08/28/21 History 50mg tablet] Potassium Chloride 10 meq PO TID 08/10/21 08/28/21 History Rivaroxaban [Xarelto 20mg Tablet*] 20 mg PO DAILY 08/10/21 08/28/21 History Tramadol HCl [Tramadol 50mg 50 mg PO TIDP PRN 08/10/21 08/29/21 History Tab] lisinopriL [Lisinopril] 5 mg PO DAILY 08/10/21 08/28/21 History Omeprazole Magnesium 20 mg PO DAILY 08/28/21 08/28/21 History clonazePAM [Clonazepam] 0.25 mg PO HS 08/29/21 08/29/21 History Allergies Allergy/AdvReac Type Severity Reaction Status Date / Time No Known Allergies Allergy Verified 08/28/21 21:27 Exam Vital signs and Labs for Last 24 Hours: Temp Pulse Resp BP Pulse Ox 98.3 F 64 18 117/51 L 92 L 08/29/21 08:00 08/29/21 08:00 08/29/21 08:00 08/29/21 08:00 08/29/21 08:00 Laboratory Results - last 24 hr 08/28/21 14:20: Sodium 140, Potassium 3.6, Chloride 103, Carbon Dioxide 21 L, Anion Gap 19.6 H, BUN 22 H, Creatinine 1.00, Estimated Creat Clear 41, Estimated GFR 53 L, Est GFR ( Amer) 64, Glucose 86, Calcium 9.5, Total Bilirubin 1.2, AST 26, ALT 16, Alkaline Phosphatase 70, Total Protein 6.6, Albumin 3.8, Globulin 2.8, Albumin/Globulin Ratio 1.4, Lipase 110 I & O for Last 24 hours: Intake & Output 08/27/21 08/28/21 08/29/21 08/30/21 11:59 11:59 11:59 11:59 Intake Total 2016 Output Total 100 / 100 100 / 100 Balance 7 / 191 -100 / -100 Weight 55.7 kg - Constitutional no acute distress - *Routine Abdominal Exam Present: soft Results - Labs 08/28/21 14:20 08/28/21 14:20 Laboratory Results - last 24 hr 08/28/21 14:20: Sodium 140, Potassium 3.6, Chloride 103, Carbon Dioxide 21 L, Anion Gap 19.6 H, BUN 22 H, Creatinine 1.00, Estimated Creat Clear 41, Estimated GFR 53 L, Est GFR ( Amer) 64, Glucose 86, Calcium 9.5, Total Bilirubin 1.2, AST 26, ALT 16, Alkaline Phosphatase 70, Total Protein 6.6, Albumin 3.8, Globulin 2.8, Albumin/Globulin Ratio 1.4, Lipase 110 - Imaging CT scan - abdomen: report reviewed CT scan - pelvis: report reviewed Assessment and Plan - Assessment and plan all Dx
[2021-08-29 15:37] VITALS: BP 147/66; PULSE 93; RESP 15; TEMP 36.7; O2SAT 95
--- NOTE | 2021-08-29 15:41 | PC.NURSE ---
PT IS RESTING IN BED. TOLERATED SITTING UP IN THE CHAIR FOR A FEW MIN. THIS MORNING. PT WAS UNABLE TO TAKE PO PROTONIX THIS MORNING. PHYSICIAN SWITCHED PROTONIX TO IV. PT HAS COMPLAINED OF MILD BACK PAIN THIS SHIFT. CONSULTED WITH PT AND STATED IT WOULD BE OKAY FOR PT TO HAVE POPSICLE'S UNTIL MIDNIGHT TONIGHT AND THEN SHE WOULD NEED TO BE NPO FOR TO SEE TO SEE HER IN THE MORNING . LUNG SOUNDS CLEAR. ABDOMEN SOFT/HYPOACTIVE BOWEL SOUNDS. LUQ TENDERNESS. PT HAS VOIDED PER BSC. 1 ASSIST TO GET OOB. WILL CONTINUE TO MONITOR.
[2021-08-29 18:40] LABS: Basophils # 0.1 K/mm3 (0-0.2); Basophils % 1.3 % (0.1-2.0); Eosinophils # 0.1 K/mm3 (0.0-0.4); Eosinophils % 1.9 % (0.1-12.0); Hematocrit 42.7 % (37.0-47.0); Hemoglobin 13.7 g/dL (12.2-16.2); Lymphocytes # 0.9 K/mm3 (0.7-4.5); Lymphocytes % 16.7 % (10-50); Mean Corpuscular Volume 100.1 fl (81-99); Mean Platelet Volume 9.5 fl (7.4-10.4); Monocytes # 0.3 K/mm3 (0.1-1.0); Monocytes % 5.1 % (1.7-9.3); Neutrophils # 4.2 K/mm3 (1.8-7.8); Platelet Count 179 K/mm3 (142-424); Red Blood Count 4.27 M/mm3 (4.20-5.40); Red Cell Distribution Width 14.1 % (11.5-17.5); White Blood Count 5.7 K/mm3 (4.8-10.8)
[2021-08-29 18:53] LABS: Chloride 108 mmol/L (98-107); Potassium 3.9 mmoL/L (3.5-5.1); Sodium 140 mmol/L (136-145)
[2021-08-29 18:56] LABS: Anion Gap 12.9 mEq/L (5-15); Calcium 9.4 mg/dl (8.4-10.2); Carbon Dioxide 23 mmol/L (22.0-30.0); Glucose 107 mg/dl (74-100)
[2021-08-29 19:20] LABS: Creatinine Clearance Estimated 39 mL/min (50-200)
[2021-08-29 19:56] LABS: Blood Urea Nitrogen 12 mg/dl (7-17)
[2021-08-29 19:58] LABS: Estimated Glomerular Filt Rate 60 ml/min (>60); GFR (African American) 73 ML/MIN (>60)
[2021-08-29 20:00] VITALS: BP 146/78; PULSE 87; RESP 18; TEMP 37; O2SAT 93
[2021-08-30] VITALS: O2SAT 94
[2021-08-30 04:00] VITALS: BP 111/59; PULSE 83; RESP 16; TEMP 36.7; O2SAT 95
--- NOTE | 2021-08-30 04:36 | PC.NURSE ---
pt has rested well t/o shift, did complain of pain one time this shift and was treated per OCT, hasn't complained of nausea this shift, has remained on room air with O2 sats 93-95%, using BSC with standby assist
[2021-08-30 05:08] VITALS: BMI 21.7
[2021-08-30 07:12] LABS: Basophils % 0.6 % (0.1-2.0); Eosinophils # 0.1 K/mm3 (0.0-0.4); Eosinophils % 1.9 % (0.1-12.0); Hematocrit 37.8 % (37.0-47.0); Lymphocytes # 1.2 K/mm3 (0.7-4.5); Lymphocytes % 23.3 % (10-50); Mean Corpuscular Hemoglobin 31.9 pg (27.0-31.2); Mean Corpuscular Volume 99.8 fl (81-99); Mean Platelet Volume 9.3 fl (7.4-10.4); Monocytes # 0.4 K/mm3 (0.1-1.0); Monocytes % 6.7 % (1.7-9.3); Neutrophils # 3.5 K/mm3 (1.8-7.8); Neutrophils % 67.6 % (37.0-80.0); Platelet Count 197 K/mm3 (142-424); Red Blood Count 3.79 M/mm3 (4.20-5.40); Red Cell Distribution Width 14.1 % (11.5-17.5); White Blood Count 5.2 K/mm3 (4.8-10.8)
[2021-08-30 07:18] LABS: Hemoglobin 12.1 g/dL (12.2-16.2)
[2021-08-30 07:26] LABS: Anion Gap 5.7 mEq/L (5-15); Blood Urea Nitrogen 10 mg/dl (7-17); Carbon Dioxide 28 mmol/L (22.0-30.0); Chloride 107 mmol/L (98-107); Creatinine Clearance Estimated 37 mL/min (50-200); Estimated Glomerular Filt Rate 60 ml/min (>60); GFR (African American) 73 ML/MIN (>60); Glucose 116 mg/dl (74-100); Sodium 138 mmol/L (136-145)
[2021-08-30 08:00] VITALS: BP 127/69; PULSE 90; RESP 17; TEMP 36.8; O2SAT 95; O2SAT 98
[2021-08-30 08:06] LABS: Potassium 2.7 mmoL/L (3.5-5.1)
--- NOTE | 2021-08-30 08:08 | PC.NURSE ---
0806- critical K+ of 2.7 reported. Verified pt name, and room number 0809- MD Uribe notified, pharmacy to place order
--- NOTE | 2021-08-30 08:24 | FL_ITS ---
FINAL REPORT CLINICAL HISTORY: trouble swallowing COMPARISON: August 10, 2021 esophagram FINDINGS: An esophagram was performed. The fluoroscopy time was not noted. Again noted is severe esophageal dysmotility with a corkscrew esophagus. This has an unchanged appearance since the recent examination. A large hiatal hernia is noted. No significant gastroesophageal reflux was demonstrated. 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 Large hiatal hernia. No significant change since the recent examination. Authenticated by Benny King III, MD on 08/30/2021 02:22:11 PM [facility]
--- NOTE | 2021-08-30 09:38 | HMH.GSPN ---
Subjective Narrative: Patient is an 80-year-old female whom I am familiar with. She resides in [place]. Primary care provider is Diego Gonzalez. She had presented to [facility] emergency department via EMS on 08/10/21 due to symptoms of dysphagia and possible foreign body/food impaction. Imaging revealed a very large hiatal hernia. However, there was also some thickening and narrowing of the distal esophagus and she did have a barium swallow performed. Due to her symptomatology she underwent urgent EGD with dilatation on 08/10/2021 at which time she was found to have very large hiatal hernia, esophageal spasm, and distal esophagus was dilated to approximately 12 to 13 mm. She was seen in the office on 08/23/20 and stated that she was doing much better. She was switched from [id number] famotidine to proton pump inhibitors. Consideration was being given for possible follow-up elective EGD. However, the patient presented on 08/28/20 to the emergency department due to ongoing symptoms. Imaging once again revealed very large hiatal hernia with the majority of her stomach within her chest. Patient currently out of room to radiology undergoing barium swallow Progress Note: A&P (1) Hiatal hernia Status: Acute (2) Dysphagia Status: Acute (3) Esophageal stricture Status: Acute Assessment and Plan for All Diagnoses:: Her symptoms are most likely due to her very large hiatal hernia. Would recommend initiating work-up on this. Pending findings of barium swallow follow-up EGD may potentially be minimally temporarily beneficial. Hypokalemia will need to be corrected prior to consideration of anesthetic. Exam Vital signs and Labs for Last 24 Hours: Temp Pulse Resp BP Pulse Ox 98.3 F 90 17 127/69 95 08/30/21 08:00 08/30/21 08:00 08/30/21 08:00 08/30/21 08:00 08/30/21 08:00 Laboratory Results - last 24 hr 08/29/21 18:35: WBC 5.7, RBC 4.27, Hgb 13.7, Hct 42.7, MCV 100.1 H, MCH 32.0 H, MCHC 32.0, RDW 14.1, Plt Count 179, MPV 9.5, Neut % (Auto) 75.0, Lymph % (Auto) 16.7, [place] % (Auto) 5.1, Eos % (Auto) 1.9, Baso % (Auto) 1.3, Neut # (Auto) 4.2, Lymph # (Auto) 0.9, [place] # (Auto) 0.3, Eos # (Auto) 0.1, Baso # (Auto) 0.1 08/29/21 18:35: Sodium 140, Potassium 3.9, Chloride 108 H, Carbon Dioxide 23, Anion Gap 12.9, BUN 12 D, Creatinine 0.90, Estimated Creat Clear 39, Estimated GFR 60, Est GFR ( Amer) 73, Glucose 107 H, Calcium 9.4 08/30/21 06:00: WBC 5.2, RBC 3.79 L, Hgb 12.1 L D, Hct 37.8, MCV 99.8 H, MCH 31.9 H, MCHC 32.0, RDW 14.1, Plt Count 197, MPV 9.3, Neut % (Auto) 67.6, Lymph % (Auto) 23.3, [place] % (Auto) 6.7, Eos % (Auto) 1.9, Baso % (Auto) 0.6, Neut # (Auto) 3.5, Lymph # (Auto) 1.2, [place] # (Auto) 0.4, Eos # (Auto) 0.1, Baso # (Auto) 0.0 08/30/21 06:00: Sodium 138, Potassium 2.7 L* D, Chloride 107, Carbon Dioxide 28, Anion Gap 5.7, BUN 10, Creatinine 0.90, Estimated Creat Clear 37, Estimated GFR 60, Est GFR ( Amer) 73, Glucose 116 H, Calcium 9.0 I & O for Last 24 hours: Intake & Output 08/27/21 08/28/21 08/29/21 08/30/21 11:59 11:59 11:59 11:59 Intake Total 2016 1418 / 1418 Output Total 100 / 100 300 / 300 Balance 1916 / 1916 1118 / 1118 Weight 122 lb 12.76 oz 118 lb 2.684 oz
[2021-08-30 10:28] VITALS: BMI 21.7
--- NOTE | 2021-08-30 12:53 | DIET.NUTRFU ---
RD interview patient, she indicated significant wt loss over past 3 months d/t the swallowing hx. She has tried supplements at home and agreed when diet is advanced to try to consume on regular basis for weight maintenance/gains. She prefers chocolate
--- NOTE | 2021-08-30 14:03 | HMH.ACPN2 ---
Internal Medicine - PN: Subj *Date: 08/30/21 *Time: 08:40 Interval history: pt states she is still having issues swallowing Exam Vital signs and Labs for Last 24 Hours: Temp Pulse Resp BP Pulse Ox 98.3 F 90 17 127/69 95 08/30/21 08:00 08/30/21 08:00 08/30/21 08:00 08/30/21 08:00 08/30/21 08:00 Laboratory Results - last 24 hr 08/29/21 18:35: WBC 5.7, RBC 4.27, Hgb 13.7, Hct 42.7, MCV 100.1 H, MCH 32.0 H, MCHC 32.0, RDW 14.1, Plt Count 179, MPV 9.5, Neut % (Auto) 75.0, Lymph % (Auto) 16.7, [place] % (Auto) 5.1, Eos % (Auto) 1.9, Baso % (Auto) 1.3, Neut # (Auto) 4.2, Lymph # (Auto) 0.9, [place] # (Auto) 0.3, Eos # (Auto) 0.1, Baso # (Auto) 0.1 08/29/21 18:35: Sodium 140, Potassium 3.9, Chloride 108 H, Carbon Dioxide 23, Anion Gap 12.9, BUN 12 D, Creatinine 0.90, Estimated Creat Clear 39, Estimated GFR 60, Est GFR ( Amer) 73, Glucose 107 H, Calcium 9.4 08/30/21 06:00: WBC 5.2, RBC 3.79 L, Hgb 12.1 L D, Hct 37.8, MCV 99.8 H, MCH 31.9 H, MCHC 32.0, RDW 14.1, Plt Count 197, MPV 9.3, Neut % (Auto) 67.6, Lymph % (Auto) 23.3, [place] % (Auto) 6.7, Eos % (Auto) 1.9, Baso % (Auto) 0.6, Neut # (Auto) 3.5, Lymph # (Auto) 1.2, [place] # (Auto) 0.4, Eos # (Auto) 0.1, Baso # (Auto) 0.0 08/30/21 06:00: Sodium 138, Potassium 2.7 L* D, Chloride 107, Carbon Dioxide 28, Anion Gap 5.7, BUN 10, Creatinine 0.90, Estimated Creat Clear 37, Estimated GFR 60, Est GFR ( Amer) 73, Glucose 116 H, Calcium 9.0 I & O for Last 24 hours: Intake & Output 08/28/21 08/29/21 08/30/21 08/31/21 11:59 11:59 11:59 11:59 Intake Total 2016 1418 / 1418 Output Total 100 / 100 300 / 300 Balance 1916 / 1916 1118 / 1118 Weight 122 lb 12.76 oz 118 lb 2.684 oz - Constitutional no acute distress - *Routine HEENT Exam Head: Present: normocephalic Eye: Present: PERRL ENT: Present: mucous membranes moist - *Routine Neck Exam Present: supple. Absent: lymphadenopathy - *Routine Respiratory Exam Present: CTA bilaterally - *Routine Cardiovascular Exam Present: RRR - *Routine Abdominal Exam Present: soft, normoactive bowel sounds. Absent: tenderness - *Routine Extremities Exam Absent: cyanosis, clubbing, edema - *Routine Skin Exam Present: warm. Absent: rash - *Routine Neurological Exam Present: alert, oriented X3 Assessment and Plan (1) Hiatal hernia Status: Acute Category: Medical Code(s): K44.9 - Diaphragmatic hernia without obstruction or gangrene (2) Dysphagia Status: Acute Qualifiers: Dysphagia type: esophageal phase Qualified Code(s): R13.19 - Other dysphagia Category: Medical Code(s): R13.10 - Dysphagia, unspecified (3) Esophageal stricture Status: Acute Category: Medical Code(s): K22.2 - Esophageal obstruction - Assessment and plan all Dx Assessment and Plan for all problems:: rounded with dr chavez all orders per dr chavez barium swallow surgery consult
[2021-08-30 16:00] VITALS: BP 138/96; PULSE 90; RESP 16; TEMP 37; O2SAT 94
[2021-08-30 20:00] VITALS: O2SAT 94
[2021-08-31] VITALS (16 sets, daily range): BP systolic 102–166; BP diastolic 53–100; PULSE 66–110; RESP 16–18; TEMP 36.4–36.9; O2SAT 91–99; BMI 21.4
[2021-08-31 07:06] LABS: Basophils % 0.5 % (0.1-2.0); Eosinophils # 0.1 K/mm3 (0.0-0.4); Eosinophils % 2.3 % (0.1-12.0); Hematocrit 39.2 % (37.0-47.0); Hemoglobin 12.5 g/dL (12.2-16.2); Lymphocytes # 1.2 K/mm3 (0.7-4.5); Lymphocytes % 25.8 % (10-50); Mean Corpuscular Hemoglobin 32.3 pg (27.0-31.2); Mean Corpuscular Volume 100.9 fl (81-99); Monocytes # 0.2 K/mm3 (0.1-1.0); Monocytes % 4.4 % (1.7-9.3); Neutrophils # 3.2 K/mm3 (1.8-7.8); Platelet Count 147 K/mm3 (142-424); Red Blood Count 3.88 M/mm3 (4.20-5.40); Red Cell Distribution Width 14.1 % (11.5-17.5); White Blood Count 4.8 K/mm3 (4.8-10.8)
[2021-08-31 07:19] LABS: Anion Gap 10.6 mEq/L (5-15); Blood Urea Nitrogen 7 mg/dl (7-17); Calcium 9.2 mg/dl (8.4-10.2); Carbon Dioxide 23 mmol/L (22.0-30.0); Chloride 109 mmol/L (98-107); Creatinine Clearance Estimated 37 mL/min (50-200); Estimated Glomerular Filt Rate 53 ml/min (>60); GFR (African American) 64 ML/MIN (>60); Glucose 84 mg/dl (74-100); Potassium 3.6 mmoL/L (3.5-5.1); Sodium 139 mmol/L (136-145)
--- NOTE | 2021-08-31 10:42 | P.PN_ITS ---
Internal Medicine - PN: Subj *Date: 08/31/21 *Time: 09:12 Interval history: 80-year-old female patient sitting in bed resting quietly. She denies any respiratory symptoms stress/chest pain/abdominal pain during the night. She has been n.p.o. all night for procedure this a.m. and is aware Exam Vital signs and Labs for Last 24 Hours: Temp Pulse Resp BP Pulse Ox 98.1 F 98 H 17 123/82 97 08/31/21 08:00 08/31/21 08:00 08/31/21 04:00 08/31/21 08:00 08/31/21 08:00 Laboratory Results - last 24 hr 08/31/21 05:30: Sodium 139, Potassium 3.6 D, Chloride 109 H, Carbon Dioxide 23, Anion Gap 10.6, BUN 7 D, Creatinine 1.00, Estimated Creat Clear 37, Estimated GFR 53 L, Est GFR ( Amer) 64, Glucose 84 D, Calcium 9.2 08/31/21 05:30: WBC 4.8, RBC 3.88 L, Hgb 12.5, Hct 39.2, MCV 100.9 H, MCH 32.3 H , MCHC 32.0, RDW 14.1, Plt Count 147 D, MPV 10.0, Neut % (Auto) 67.0, Lymph % (Auto) 25.8, [place] % (Auto) 4.4, Eos % (Auto) 2.3, Baso % (Auto) 0.5, Neut # (Auto) 3.2, Lymph # (Auto) 1.2, [place] # (Auto) 0.2, Eos # (Auto) 0.1, Baso # (Auto) 0.0 I & O for Last 24 hours: Intake & Output 08/28/21 08/29/21 08/30/21 08/31/21 23:59 23:59 23:59 23:59 Intake Total 1000 / 1000 1017 / 1017 1418 / 1418 Output Total 200 / 200 700 / 950 250 / 250 Balance 1000 / 1000 817 / 817 718 / 468 -250 / -250 Weight 122 lb 12.76 oz 122 lb 12.76 oz 118 lb 2.684 oz 116 lb 9.6 oz Assessment and Plan (1) Hiatal hernia Status: Acute Category: Medical Code(s): K44.9 - Diaphragmatic hernia without obstruction or gangrene (2) Dysphagia Status: Acute Qualifiers: Dysphagia type: esophageal phase Qualified Code(s): R13.19 - Other dysphagia Category: Medical Code(s): R13.10 - Dysphagia, unspecified (3) Esophageal stricture Status: Acute Category: Medical Code(s): K22.2 - Esophageal obstruction - Assessment and plan all Dx Assessment and Plan for all problems:: Rounded with Dr. Uribe, all orders per Dr. Uribe: 1. Awaiting results from EGD 2. General surgery following
--- NOTE | 2021-08-31 13:24 | P.PN_ITS ---
[facility] Anesthesia Checklist - Patient Identification Patient Identification: Arm Band - Structural Data Admitted From: Inpatient Planned Operative Procedure/s: EGD Consent for Planned Operative Procedure(s) Verified: Yes - NPO Status Verified Time NPO: 00:00 - Additional verifications Anesthesia Reactions: No - Airway Assessment C-Spine Mobility Assessed: Yes TMJ Mobility Assessed: Yes Dentition: Edentulous - Neurological Assessment Level of Consciousness: Awake Hx Seizures: No Numbness or tingling in extremities: No - Anesthesia Plan Anesthesia Risk discussed: Yes Anesthesia Plan: Verified ASA Class: III Anesthesia Type: MAC [facility] History I have reviewed the patient's past medical history: Yes Medical History: Reports:: Atrial Fibrillation, Gastroesophageal Reflux Disease(GERD), Hiatal Hernia *Have you ever received a pneumonia vaccine?: No *Have you received a flu vaccine this season?: No Anesthesia experience/problems:: None Other Surgeries: Yes: Appendectomy, Cholecystectomy, EGD, Hysterectomy-Total Amputation: No Fractures: No - *Social History Smoking Status: Never smoker Alcohol Intake: never Substance Use Type: denies use *Occupational Status:: retired *Travel in the last 8 weeks: None Family Hx:: No significant family history
--- NOTE | 2021-08-31 13:32 | SW/DCPLANNER ---
MADE ROUNDS WITH MD TODAY, PATIENT WAS WAITING TO GO DOWN FOR EGD TO DO A STRETCHING OF THE ESOPHAGUS... PATIENT HAS NOT BEEN ABLE TO TOLERATE EATING ANYTHING WITHOUT IT COMING BACK UP R/T THE NARROWING OF THE ESOPHAGUS. PATIENT STATED SHE RESIDES AT HOME ALONE BUT HAS A SON THAT LIVES [place] AND ANOTHER ONE THAT LIVES IN [place]. SHE DOES HER OWN HOUSEWORK AND SELF CARE. SHE PLANS TO RETURN BACK HOME AFTER PROCEDURE TODAY.. SHE WILL NEED TO FOLLOW UP WITH MD AFTER DISCHARGE.. NO OTHER ORDERS AT THIS TIME FOR ANY HOME CARE.
--- NOTE | 2021-08-31 14:24 | HMH.SCOPE ---
- Procedure: Date: 08/31/21 Patient Date of :: 1940 Procedure Performed:: Esophagogastroduodenoscopy with dilatation Indications:: Patient is an 80-year-old female whom I am familiar with. She resides in [facility]. Primary care provider is Diego Gonzalez. She had presented to [facility] emergency department via EMS on 08/10/21 due to symptoms of dysphagia and possible foreign body/food impaction. She has a longstanding history of some dysphagia but at that time it had become significantly more severe over several days. Imaging revealed a very large hiatal hernia. However, there was also some thickening and narrowing of the distal esophagus and she did have a barium swallow performed. Due to her symptomatology she underwent urgent EGD with dilatation on 08/10/2021 at which time she was found to have very large hiatal hernia, esophageal spasm, and distal esophagus was dilated to approximately 12 to 13 mm. She was seen in the office on 08/23/20 and stated that she was doing much better. She was switched from [id number] famotidine to proton pump inhibitors. The patient presented on 08/28/20 to the emergency department due to symptoms of significant dysphagia.. Imaging once again revealed very large hiatal hernia with the majority of her stomach within her chest. Surgical consultation was obtained. She did undergo barium swallow which revealed severe esophageal dysmotility with corkscrew esophagus , large hiatal hernia. Plan was made for EGD to see if this gave her some at least transient relief of her dysphagia. Performing Provider:: Benny Dominguez MD Referring Provider:: Zeyad Uribe MD Sedation:: MAC sedation Procedure:: Patient was taken to endoscopy procedure room. She was positioned in lateral decubitus position. Adequate intravenous sedation was achieved with anesthesia titration of propofol. Olympus endoscope was inserted via the oropharynx. Esophagus was cannulated the endoscope was advanced. She had somewhat of a tortuous somewhat corkscrew appearance to the esophagus. Gastroesophageal junction was encountered at approximately 38 cm from the incisors. Stomach was cannulated and insufflated. The anatomy and orientation of the stomach was altered due to the fact that she had such a large hiatal hernia that her stomach was in her chest. However pylorus was identified and the endoscope was easily advanced into the duodenal bulb which appeared normal. There was some diffuse moderate nonerosive gastritis. Endoscope was withdrawn to the distal esophagus. Gastroesophageal junction was dilated initially to 12 mm at 4 hadley pressure using the pneumatic dilator. It was then dilated to 13.5 mm at 6 hadley for pressure and held in position for at least 30 seconds. It was then ultimately dilated to 15 mm at 8 hadley pressure and held for at least 1 minute. Balloon was deflated. Endoscope was then advanced into the gastric lumen which was desufflated. Endoscope was withdrawn. Findings:: Tortuous esophagus consistent with severe esophageal dysmotility Gastroesophageal junction at approximately 38 cm from the incisors Minor narrowing at the gastroesophageal junction dilated ultimately to 15 mm Very large hiatal hernia Diffuse moderate nonerosive gastritis Recommendations:: Her biggest issue is secondary to her very large hiatal hernia and profound esophageal dysmotility. Ultimately will need referral and evaluation for hiatal hernia repair. Complications:: None immediately apparent Estimated blood obtained (mL): 1
--- NOTE | 2021-08-31 15:29 | DIET.NUTRFU ---
Patient advanced to full liquid diet after EGD. Recommendations were to follow-up for hiatal hernia. Patient does trigger for malnutrition secondary to significant wt loss. Spoke to patient early in stay abut supplements and she agreed t ensure BID chocolate flavor. Will start. She also continues on dextrose for additional hydration. Labs on 08/31 indicate good hydration. Will continue to monitor wts, labs and meal intake along with diet tolerance.
[2021-09-01] VITALS: BP 121/73; PULSE 87; RESP 16; TEMP 36.7; O2SAT 97
[2021-09-01 04:42] VITALS: BP 132/62; PULSE 84; RESP 16; TEMP 36.7; O2SAT 93
[2021-09-01 05:00] VITALS: BMI 23.4
[2021-09-01 06:40] LABS: Basophils # 0.1 K/mm3 (0-0.2); Basophils % 0.7 % (0.1-2.0); Eosinophils # 0.2 K/mm3 (0.0-0.4); Eosinophils % 2.6 % (0.1-12.0); Hematocrit 41.3 % (37.0-47.0); Hemoglobin 13.5 g/dL (12.2-16.2); Lymphocytes # 1.1 K/mm3 (0.7-4.5); Lymphocytes % 13.5 % (10-50); Mean Corpuscular HGB Conc 32.6 g/dL (31.8-35.4); Mean Corpuscular Hemoglobin 32.3 pg (27.0-31.2); Monocytes # 0.3 K/mm3 (0.1-1.0); Monocytes % 3.8 % (1.7-9.3); Neutrophils # 6.2 K/mm3 (1.8-7.8); Neutrophils % 79.5 % (37.0-80.0); Platelet Count 109 K/mm3 (142-424); Red Blood Count 4.17 M/mm3 (4.20-5.40); Red Cell Distribution Width 14.2 % (11.5-17.5); White Blood Count 7.9 K/mm3 (4.8-10.8)
--- NOTE | 2021-09-01 06:51 | P.PN_ITS ---
Subjective Narrative: Patient has tolerated some full liquids. She still does have some regurgitation of saliva not surprisingly. Progress Note: A&P (1) Hiatal hernia Status: Acute (2) Dysphagia Status: Acute Assessment and plan: No additional surgical recommendations at this time (3) Esophageal stricture Status: Acute Exam Vital signs and Labs for Last 24 Hours: Temp Pulse Resp BP Pulse Ox 98.0 F 84 16 132/62 93 L 09/01/21 04:42 09/01/21 04:42 09/01/21 04:42 09/01/21 04:42 09/01/21 04:42 Laboratory Results - last 24 hr 08/31/21 05:30: Sodium 139, Potassium 3.6 D, Chloride 109 H, Carbon Dioxide 23, Anion Gap 10.6, BUN 7 D, Creatinine 1.00, Estimated Creat Clear 37, Estimated GFR 53 L, Est GFR ( Amer) 64, Glucose 84 D, Calcium 9.2 08/31/21 05:30: WBC 4.8, RBC 3.88 L, Hgb 12.5, Hct 39.2, MCV 100.9 H, MCH 32.3 H , MCHC 32.0, RDW 14.1, Plt Count 147 D, MPV 10.0, Neut % (Auto) 67.0, Lymph % (Auto) 25.8, [place] % (Auto) 4.4, Eos % (Auto) 2.3, Baso % (Auto) 0.5, Neut # (Auto) 3.2, Lymph # (Auto) 1.2, [place] # (Auto) 0.2, Eos # (Auto) 0.1, Baso # (Auto) 0.0 I & O for Last 24 hours: Intake & Output 08/29/21 08/30/21 08/31/21 09/01/21 11:59 11:59 11:59 11:59 Intake Total 2016 / 2016 1418 / 1418 1210 / 1210 Output Total 100 / 100 300 / 300 750 / 750 0 / 0 Balance 1916 / 1916 1118 / 1118 -750 / -750 1210 / 1210 Weight 122 lb 12.76 oz 118 lb 2.684 oz 116 lb 9.6 oz 127 lb 6.835 oz - *Routine Abdominal Exam Present: soft. Absent: tenderness
[2021-09-01 07:13] LABS: Anion Gap 10.7 mEq/L (5-15); Blood Urea Nitrogen 5 mg/dl (7-17); Carbon Dioxide 19 mmol/L (22.0-30.0); Chloride 113 mmol/L (98-107); Creatinine Clearance Estimated 40 mL/min (50-200); Estimated Glomerular Filt Rate 60 ml/min (>60); GFR (African American) 73 ML/MIN (>60); Glucose 95 mg/dl (74-100); Potassium 3.7 mmoL/L (3.5-5.1); Sodium 139 mmol/L (136-145)
[2021-09-01 08:00] VITALS: BP 162/88; PULSE 95; RESP 18; TEMP 36.3; O2SAT 98
--- NOTE | 2021-09-01 08:23 | PC.NURSE ---
patient rested well through night. VSS. Denies complaints. tolerating full liquids.
--- NOTE | 2021-09-01 10:21 | DIET.NUTRFU ---
Patient plans to discharge today with anticipation of having sx for hiatal hernia at , but it might take a couple weeks to complete. Currently she is receiving full liquids, observed morning tray, consumed less than 1/2 of oatmeal, 100% of jello and maybe some milk. She is still having some nausea with vomiting present. Provider aware. She was started on ensure BID and encouraged to drink 3/day at home. She has lost weight previously and is at risk for further weight loss d/t diet limitations. Provider felt like she could take in mashed out proteins and starches even with the narrowing of esophagus. Provided handout on full liquids and dysphasia MSOFT diet. She lives alone, her son will do grocery shopping but sounds like she consumes microwavable foods often. Suggested mashed mac and cheese or lansagna or cottage cheese, soft eggs. She claimed she had some of the foods at her house already. Also encouraged to contact RD is have any questions after discharge.
[2021-09-01 11:52] LABS: Microscopic, Urine URINE MICROSCOPIC (MICROSCOPIC)
--- NOTE | 2021-09-01 12:38 | HMH.DCSUM ---
General - General Admission date:: 08/28/21 Discharge date: 09/01/21 HPI HPI: this patient was seen in the ed with hx -80-year-old female presenting to the emergency department generalized illness, nausea and vomiting. Symptoms been present for the last 4 to 5 days but getting worse. She is able to drink water and take small bites of food. However, she vomits shortly after. She had her esophagus stretched with Dr. Dominguez 1 week ago. Did well for a couple of days. She denies fevers, chills. Minimal anterior abdominal pain. No dysuria or hematuria. She has not had a bowel movement in a couple of days, but does not feel like she is constipated. Does not have nausea medication at home. No headache, dizziness Hospital Course Hospital Course: Laboratory Tests 08/28/21 08/28/21 08/28/21 13:10 14:20 14:20 WBC 6.5 RBC 4.05 L Hgb 13.3 Hct 40.7 MCV 100.5 H MCH 32.8 H MCHC 32.6 RDW 14.3 Plt Count 210 MPV 9.4 Neut % (Auto) 83.7 H Lymph % (Auto) 11.3 [place] % (Auto) 4.1 Eos % (Auto) 0.4 Baso % (Auto) 0.5 Neut # (Auto) 5.4 Lymph # (Auto) 0.7 [place] # (Auto) 0.3 Eos # (Auto) 0.0 Baso # (Auto) 0.0 Sodium 140 Potassium 3.6 Chloride 103 Carbon Dioxide 21 L Anion Gap 19.6 H BUN 22 H Creatinine 1.00 Estimated Creat Clear 41 Estimated GFR 53 L Est GFR ( Amer) 64 Glucose 86 Calcium 9.5 Total Bilirubin 1.2 AST 26 ALT 16 Alkaline Phosphatase 70 Total Protein 6.6 Albumin 3.8 Globulin 2.8 Albumin/Globulin Ratio 1.4 Lipase 110 SARS-CoV-2 (PCR) Not detected Influenza A Untype (PCR) Not detected Influenza Type B (PCR) Not detected 08/29/21 08/29/21 08/30/21 18:35 18:35 06:00 WBC 5.7 5.2 RBC 4.27 3.79 L Hgb 13.7 12.1 L D Hct 42.7 37.8 MCV 100.1 H 99.8 H MCH 32.0 H 31.9 H MCHC 32.0 32.0 RDW 14.1 14.1 Plt Count 179 197 MPV 9.5 9.3 Neut % (Auto) 75.0 67.6 Lymph % (Auto) 16.7 23.3 [place] % (Auto) 5.1 6.7 Eos % (Auto) 1.9 1.9 Baso % (Auto) 1.3 0.6 Neut # (Auto) 4.2 3.5 Lymph # (Auto) 0.9 1.2 [place] # (Auto) 0.3 0.4 Eos # (Auto) 0.1 0.1 Baso # (Auto) 0.1 0.0 Sodium 140 Potassium 3.9 Chloride 108 H Carbon Dioxide 23 Anion Gap 12.9 BUN 12 D Creatinine 0.90 Estimated Creat Clear 39 Estimated GFR 60 Est GFR ( Amer) 73 Glucose 107 H Calcium 9.4 Total Bilirubin AST ALT Alkaline Phosphatase Total Protein Albumin Globulin Albumin/Globulin Ratio Lipase SARS-CoV-2 (PCR) Influenza A Untype (PCR) Influenza Type B (PCR) 08/30/21 08/31/21 08/31/21 06:00 05:30 05:30 WBC 4.8 RBC 3.88 L Hgb 12.5 Hct 39.2 MCV 100.9 H MCH 32.3 H MCHC 32.0 RDW 14.1 Plt Count 147 D MPV 10.0 Neut % (Auto) 67.0 Lymph % (Auto) 25.8 [place] % (Auto) 4.4 Eos % (Auto) 2.3 Baso % (Auto) 0.5 Neut # (Auto) 3.2 Lymph # (Auto) 1.2 [place] # (Auto) 0.2 Eos # (Auto) 0.1 Baso # (Auto) 0.0 Sodium 138 139 Potassium 2.7 L* D 3.6 D Chloride 107 109 H Carbon Dioxide 28 23 Anion Gap 5.7 10.6 BUN 10 7 D Creatinine 0.90 1.00 Estimated Creat Clear 37 37 Estimated GFR 60 53 L Est GFR ( Amer) 73 64 Glucose 116 H 84 D Calcium 9.0 9.2 Total Bilirubin AST ALT Alkaline Phosphatase Total Protein Albumin Globulin Albumin/Globulin Ratio Lipase SARS-CoV-2 (PCR) Influenza A Untype (PCR) Influenza Type B (PCR) 09/01/21 09/01/21 06:30 06:30 WBC 7.9 D RBC 4.17 L Hgb 13.5 Hct 41.3 MCV 99.0 MCH 32.3 H MCHC 32.6 RDW 14.2 Plt Count 109 L D MPV 10.0 Neut % (Auto) 79.5 Lymph % (Auto) 13.5 [place] % (Auto) 3.8 Eos % (Auto) 2.6 Baso % (Auto) 0.7 Neut # (Auto) 6.2 Lymph # (Auto) 1.1 [place]
[2021-09-01 14:21] LABS: Appearance,Urine CLOUDY (Clear); Blood, Urine 1+ (Negative); Color,Urine DK YELLOW (Yellow); Glucose,Urine (UA) Negative (Negative); Ketones,Urine Negative (Negative); Leukocyte Esterase,Urine 3+ (Negative); Nitrate,Urine Negative (Negative); PH,Urine 6.5 (5.0-8.5); Protein,Urine Negative (Negative); Specific Gravity, Urine <= 1.005 (1.005-1.030)
[2021-09-01 14:22] LABS: Bilirubin,Urine 1+ (Negative)
[2021-09-01 14:24] LABS: Bacteria,Urine 1+ /lpf; WBC,Urine 20-50 #/hpf (0-3)
--- NOTE | 2021-09-01 14:53 | PC.NURSE ---
Pt. left unit ambulatory via wheelchair, accompanied by staff x1 and family member.
--- NOTE | 2021-09-01 14:53 | PC.NURSE ---
Pt. left unit via wheelchair at this time, accompanied by staff x1 and family member.
== END 2021-09-01 14:53 | disposition home or self-care (01) ==
LOC: ER 17:57 → 2ND 19:28
PROVIDERS: Nurse Practitioner Family; Surgery; Admitting Provider Emergency Medicine; Emergency Provider Emergency Medicine; PCP Family Medicine; Visit Provider Emergency Medicine
PROC: 0DJ08ZZ Inspection of Upper Intestinal Tract, Via Natural or Artificial Opening Endoscopic (ICD-10-PCS; CPT 43235; principal; 2021-08-31 13:30)
DX: R13.19 Other dysphagia (principal); K44.9 Diaphragmatic hernia without obstruction or gangrene; K22.2 Esophageal obstruction; Z20.822 Contact with and (suspected) exposure to COVID-19; Z79.01 Long term (current) use of anticoagulants; I48.91 Unspecified atrial fibrillation; N39.0 Urinary tract infection, site not specified
CPT/HCPCS: 43249; G0378; 36415; 71045; 74177; 74220; 80048; 80053; 81001; 83690; 85025; 87086; 87186; 96365; 99284; C1726; C9803; J2405; Q9967; U0003; U0005

== ENCOUNTER → 2021-09-08 14:20 | Outpatient (CLI) | payer MEDICARE, SELFPAY | PROVIDERS: Visit Provider Emergency Medicine | DX: R82.90 Unspecified abnormal findings in urine (principal) | CPT/HCPCS: 87086; 87088; 87186 ==